=== PATIENT | female | born 1965 | race Caucasian/White ===

== ENCOUNTER 2017-04-01 00:52 | Emergency (ER) | payer SELFPAY ==
[~2017-04-01] VITALS: Ht 165.1 cm; Wt 62.0 kg
[2017-04-01 01:16] VITALS: BP 170/100
== END 2017-04-01 03:00 | disposition left against medical advice (07) ==
LOC: ER 01:26
DX: Z53.21 Procedure and treatment not carried out due to patient leaving prior to being seen by health care provider (principal)